=== PATIENT | female | born 1990 | race Hispanic/Latino ===

== ENCOUNTER 2017-01-09 19:27 | Emergency (ER) | payer OTHER ==
--- NOTE | 2017-01-09 19:31 | ED PDOC ---
"Arrival/HPI - General Time Seen by Provider: 01/09/17 19:30 Historian: Patient - History of Present Illness Narrative History of Present Illness (Text): 01/09/17 19:30 26 year old female, no significant pmh, nkda, LMP 09/10/2016, , approx. 12 weeks , here with the , complaining of suprapubic and lower back pain x 3 days with no fall or trauma. Aching pain, on and off, aggravated by movement, no nausea or vomiting, no night sweat, no dizziness, no rash, no vaginal bleeding or discharge, no pain medication taken at home, no night sweat , no rash, no other medical or psychological complaints. Past Medical History - Provider Review Nursing Documentation Reviewed: Yes Family/Social History - Physician Review Nursing Documentation Reviewed: Yes Family/Social History: Unknown Family HX Allergies/Home Meds Allergies/Adverse Reactions: Allergies No Known Allergies Allergy (Verified 01/09/17 19:34) Home Medications: Home Meds Medication Instructions Recorded Confirmed Vit No.126/Iron/Folic 1 tab PO DAILY 01/09/17 01/09/17 [Classic Tablet] Review of Systems - Review of Systems Constitutional: absent: Fatigue, Fevers Eyes: absent: Vision Changes ENT: absent: Hearing Changes Respiratory: absent: SOB, Cough Cardiovascular: absent: Chest Pain Gastrointestinal: absent: Abdominal Pain, Nausea, Vomiting Musculoskeletal: Back Pain. absent: Arthralgias, Myalgias Skin: absent: Rash, Pruritis, Skin Lesions Neurological: absent: Headache, Dizziness Psychiatric: absent: Anxiety, Depression, Suicidal Ideation Physical Exam Vital Signs Reviewed: Yes Vital Signs Temp Pulse Resp BP Pulse Ox 01/09/17 19:38 98.0 F 82 17 107/72 97 Temperature: Afebrile Blood Pressure: Normal Pulse: Regular Respiratory Rate: Normal Appearance: Positive for: Well-Appearing, Non-Toxic, Comfortable Pain Distress: Mild Mental Status: Positive for: Alert and Oriented X 3 - Systems Exam Head: Present: Atraumatic, Normocephalic Pupils: Present: PERRL Extroacular Muscles: Present: EOMI Conjunctiva: Present: Normal Mouth: Present: Moist Mucous Membranes Neck: Present: Normal Range of Motion. No: MIDLINE TENDERNESS Respiratory/Chest: Present: Clear to Auscultation, Good Air Exchange. No: Respiratory Distress, Accessory Muscle Use Cardiovascular: Present: Regular Rate and Rhythm, Normal S1, S2. No: Murmurs Abdomen: Present: Normal Bowel Sounds. No: Tenderness, Distention, Peritoneal Signs, Rebound, Guarding Genitourinary/Pelvic Exam: Present: Normal External Genitalia, Cervical os Closed, Other (Female Cane Feeder: PRESS HELPERELVIRA Womack). No: Vaginal Discharge, Vaginal Bleeding, Vaginal Lesions, Adenexal Tenderness, Adenexal Mass, Cervical Motion Tendernes, Odor Back: Present: Normal Inspection. No: CVA Tenderness, Midline Tenderness, Paraspinal Tenderness, Pain with Leg Raise, Decubitus Ulcer Upper Extremity: Present: Normal Inspection. No: Cyanosis, Edema Lower Extremity: Present: Normal Inspection. No: Edema Neurological: Present: GCS=15, Speech Normal, Motor Func Grossly Intact, Gait Normal, Memory Normal Skin: Present: Warm, Dry, Normal Color. No: Rashes Psychiatric: Present: Alert, Oriented x 3, Normal Insight, Normal Concentration Medical Decision Making ED Course and Treatment: 01/09/17 19:52 -labs/ua/type and screen -transvaginal sonogram -IVF/tylenol -observe and reassess 01/09/17 21:30 -Labs are non-significant except hgb 11.1, K+ 3.5 (patient preferred diet intake then oral medication). -Beta hcg [id number] -Urinalysis show +UTI (IV rocephine ordered). -Blood type: B+ -pending Sonogram 01/09/17 22:09 -sonogram show approx. 15-16 weeks, FHR 138bpm, single live intrauterine . -Pt. has no pain or active bleeding in the Emergency room 01/09/17 22:42 -Discharge home with keflex, tylenol, stay hydrated, bed rest, follow up with your own pmd and obgyn within 2 days, return to the ER for any new or worsening signs or symptoms. - Lab Interpretations Lab Results: 01/09/17 20:00 01/09/17 20:00 Lab Results 01/09/17 20:45: Blood Type Confirm B POSITIVE 01/09/17 20:00: Blood Type B POSITIVE, Antibody Screen Negative, BBK History Checked No verified bt 01/09/17 20:00: WBC 9.9, RBC 4.90, Hgb 11.1 L, Hct 34.4 L, MCV 70.2 L, MCH 22.7 L, MCHC 32.3, RDW 15.2 H, Plt Count 234, MPV 11.1 H, Gran % 70.3 H, Lymph % ( Auto) 24.1, [place] % (Auto) 5.2, Eos % (Auto) 0.4 L, Baso % (Auto) 0.0, Gran # 6.96 H, Lymph # 2.4, [place] # 0.5, Eos # 0.0, Baso # 0.00 01/09/17 20:00: Beta HCG, Quant 18065.00 H 01/09/17 20:00: Sodium 138, Potassium 3.5 L, Chloride 106, Carbon Dioxide 22, Anion Gap 14, BUN 5 L, Creatinine 0.4 L, Est GFR ( Amer) > 60, Est GFR ( Non-Af Amer) > 60, Random Glucose 87, Calcium 9.3, Total Bilirubin 0.4, AST 20, ALT 24, Alkaline Phosphatase 56, Total Protein 7.7, Albumin 4.0, Globulin 3.7, Albumin/Globulin Ratio 1.1 01/09/17 19:38: Urine Color Yellow, Urine Appearance Sl cloudy, Urine pH 6.5, Ur Specific [place] 1.015, Urine Protein 100 H, Urine Glucose (UA) Negative, Urine Ketones Negative, Urine Blood Large H, Urine Nitrate Negative, Urine Bilirubin Negative, Urine Urobilinogen 0.2, Ur Leukocyte Esterase Moderate H, Urine RBC Tntc, Urine WBC Tntc, Ur Epithelial Cells 10 - 12, Urine Bacteria Many Interpretation: Abnormal lab values (hgb 11.1, K+ 3.5, Urinalysis show +UTI) - RAD Interpretation Radiology Orders: 01/09/17 19:48 AGE [US] Stat FINDINGS: Fetus: Single live intrauterine gestation. Heart rate: heart rate of 138 beats per minute. Presentation: Variable. Placenta: Anterior placenta. No placenta previa or abruption. Amniotic fluid: Normal. Anatomy: No gross anomaly is appreciated. BIOMETRICS Gestational age by US: Estimated gestational age of 16 weeks 0 days by measurements. EFW: Estimated weight of 135 g. BPD: 3.3 cm, correlating with 16 weeks 2 days. HC: 12.3 cm, correlating with 16 weeks 1 day. AC: 9.7 cm, correlating with 15 weeks 5 days. FL: 1.9 cm, correlating with 15 weeks 5 days. MATERNAL: Uterus: Unremarkable. No myometrial mass. Cervix: No cervical dilatation or effacement. Adnexa: Ovaries not visualized. No adnexal masses. Free fluid: No significant free fluid. CAROL GUZMAN | Final Radiology Report CONFIDENTIALITY STATEMENT This report is intended only for use by the referring physician, and only in accordance with law. If you received this in error, call [phone]. Page 2 of 2 IMPRESSION: 1. Single live intrauterine gestation. Thank you for allowing us to participate in the care of your patient. Dictated and Authenticated by: Earl Gomez MD 01/09/2017 9:51 PM Eastern Time ([place] & [place]) Factorer: Radiologist - Medication Orders Current Medication Orders: Discontinued Medications Acetaminophen (Tylenol 325mg Tab) 650 mg PO STAT STA Stop: 01/09/17 19:51 Last Admin: 01/09/17 20:14 Dose: 650 mg MAR Pain/Vitals Document 01/09/17 20:14 FLO (Rec: 01/09/17 20:14 FLO [id number]) Pain Reassessment Is This A Pain ReAssessment? Yes Presence of Pain Presence of Pain Yes Pain Scale Used Pain Scale Used Numeric Location Upper or Lower Lower Pain Location Body Site Abdomen Description Intermittent Intensity 5 Scale Used Numeric Sodium Chloride (Sodium Chloride 0.9%) 1,000 mls @ 999 mls/hr IV .Q1H1M STA Stop: 01/09/17 20:38 Last Admin: 01/09/17 20:10 Dose: 999 mls/hr eMAR Start Stop Document 01/09/17 20:10 FLO (Rec: 01/09/17 20:12 FLO [id number]) Intravenous Solution Start Date 01/09/17 Start Time 20:10 End Date 01/09/17 End time 21:10 Total Infusion Time 60 Ceftriaxone Sodium (Rocephin 1 Gram Ivpb) 1 gm in 100 mls @ 200 mls/hr IVPB STAT STA PRN Reason: Protocol Stop: 01/09/17 21:21 - PA / LEGAL EXECUTIVE / Resident Statement /DO has reviewed & agrees with the documentation as recorded. Disposition/Present on Arrival - Present on Arrival Any Indicators Present on Arrival: No History of DVT/PE: No History of Uncontrolled Diabetes: No Urinary Catheter: No History of Decub. Ulcer: No - Disposition Have Diagnosis and Disposition been Completed?: Yes Diagnosis: , UTI (urinary tract infection), Back pain Disposition: HOME/ ROUTINE Disposition Time: 22:13 Patient Plan: Discharge Patient Problems: Current Active Problems Problem Status Onset Acute UTI (urinary tract infection) Acute Back pain Acute Condition: IMPROVED Additional Instructions: -Discharge home with keflex, tylenol, stay hydrated, bed rest, follow up with your own pmd and obgyn within 2 days, return to the ER for any new or worsening signs or symptoms. Prescriptions: Acetaminophen [Tylenol 325mg tab] 2 tab PO QID PRN #35 tab PRN Reason: Other Cephalexin [Keflex] 500 mg PO QID #32 capsule Referrals: Alvin Nieto MD [Primary Care Provider] - Follow up with primary Gaston Ordoñez DO [Staff Provider] - Follow up with primary Forms: WORK NOTE"
[2017-01-09 19:38] VITALS: BP 107/72; PULSE 82; RESP 17; TEMP 98; O2SAT 97
[2017-01-09] MEDS ORDERED: Sodium Chloride 0.9% 1,000 ML IV STA (19:38)
[2017-01-09 20:22] LABS: URINE APPEARANCE SL CLOUDY (CLEAR); URINE BILIRUBIN NEGATIVE (NEGATIVE); URINE BLOOD LARGE (NEGATIVE); URINE COLOR YELLOW (YELLOW); URINE GLUCOSE (UA) NEGATIVE (NEGATIVE); URINE KETONE NEGATIVE (NEGATIVE)
[2017-01-09 20:23] LABS: PH,URINE 6.5 (4.7-8.0); URINE LEUKOCYTE ESTERASE MODERATE Leu/uL (NEGATIVE); URINE PROTEIN 100 mg/dL (<30 mg/dL); URINE UROBILINOGEN 0.2 E.U./dL (<1 E.U./dL)
[2017-01-09 20:25] LABS: URINE RBC TNTC /hpf (0-2); URINE WBC TNTC /hpf (0-6)
[2017-01-09 20:26] LABS: URINE BACTERIA MANY (NEG)
[2017-01-09 20:32] LABS: EOS % 0.4 % (1.5-5.0); GRAN # 6.96 (1.4-6.5); GRAN % 70.3 % (50.0-68.0); HEMATOCRIT 34.4 % (36.0-48.0); LYMPH # 2.4 (1.2-3.4); LYMPH % 24.1 % (22.0-35.0); MEAN CELL VOLUME 70.2 fl (80.0-105.0); MEAN CORPUSCULAR HEMOGLOBIN 22.7 pg (25.0-35.0); MEAN CORPUSCULAR HGB CONC 32.3 g/dl (31.0-37.0); MEAN PLATELET VOLUME 11.1 fl (7.0-11.0); MONO # 0.5 (0.1-0.6); MONO % 5.2 % (1.0-6.0); RED CELL DISTRIBUTION WIDTH 15.2 % (11.5-14.5); WHITE BLOOD COUNT 9.9 10^3/ul (4.5-11.0)
[2017-01-09 20:45] LABS: ALB/GLOB RATIO 1.1 (1.1-1.8); ALKALINE PHOSPHATASE 56 U/L (38-126); ALT/SGPT 24 U/L (7-56); AST/SGOT 20 U/L (14-36); BILIRUBIN,TOTAL 0.4 mg/dL (0.2-1.3); BLOOD UREA NITROGEN 5 mg/dL (7-21); CALCIUM 9.3 mg/dL (8.4-10.5); CARBON DIOXIDE 22 mmol/L (21-33); CHLORIDE 106 mmol/L (98-107); GFR AFRICAN-AMERICAN > 60; GLUCOSE,RANDOM 87 mg/dL (70-110); POTASSIUM 3.5 mmol/L (3.6-5.0); SODIUM 138 mmol/L (132-148); TOTAL PROTEIN 7.7 g/dL (5.8-8.3)
[2017-01-09] MEDS ORDERED: cefTRIAXone 1 gm 1 GM/100 ML BAG IVPB STA (20:52)
--- NOTE | 2017-01-09 21:52 | US ---
EXAM: US After First Trimester, Transabdominal CLINICAL HISTORY: 26 years old, female; Pain; Other: Pelvic pain; Gestational age or lmp: 09/10/16; ; Additional info: Suprapubic and lower back pain, TECHNIQUE: Real-time transabdominal obstetrical ultrasound of the maternal pelvis and a second or third trimester with image documentation. COMPARISON: No relevant prior studies available. FINDINGS: Fetus: Single live intrauterine gestation. Heart rate: heart rate of 138 beats per minute. Presentation: Variable. Placenta: Anterior placenta. No placenta previa or abruption. Amniotic fluid: Normal. Anatomy: No gross anomaly is appreciated. BIOMETRICS Gestational age by US: Estimated gestational age of 16 weeks 0 days by measurements. EFW: Estimated weight of 135 g. BPD: 3.3 cm, correlating with 16 weeks 2 days. HC: 12.3 cm, correlating with 16 weeks 1 day. AC: 9.7 cm, correlating with 15 weeks 5 days. FL: 1.9 cm, correlating with 15 weeks 5 days. MATERNAL: Uterus: Unremarkable. No myometrial mass. Cervix: No cervical dilatation or effacement. Adnexa: Ovaries not visualized. No adnexal masses. Free fluid: No significant free fluid. IMPRESSION: 1. Single live intrauterine gestation.
== END 2017-01-09 23:10 | disposition home or self-care (01) ==
LOC: ED 19:27
DX: O23.41 Unspecified infection of urinary tract in pregnancy, first trimester (principal); O26.891 Other specified pregnancy related conditions, first trimester; Z3A.12 12 weeks gestation of pregnancy; M54.5 Low back pain
CPT/HCPCS: 76815; 80053; 81001; 84702; 85025; 86850; 86900; 87086; 96361; 96365; 99283; J0696; J7040